=== PATIENT | female | born 1945 | race Caucasian/White ===

== ENCOUNTER 2016-06-23 08:45 | Emergency (ER) | payer OTHER ==
[~2016-06-23] VITALS: Ht 167.6 cm; Wt 95.3 kg
[~2016-06-23 08:45] MED LIST: APAP/CODEINE 301 TAB PO; ATENOLOL25 M1 PO; LISINOPRIL20 MG PO; PROPAFENONE HC PO
[2016-06-23 09:26] LABS: ABSOLUTE BASOPHIL COUNT 0 /CUMM (0.0-0.2); ABSOLUTE EOSINOPHIL COUNT 0.2 /CUMM (0.0-0.7); ABSOLUTE GRANULOCYTE CT 3.1 /CUMM (1.4-6.5); ABSOLUTE LYMPH COUNT 1.6 /CUMM (1.2-3.4); ABSOLUTE MONOCYTE COUNT 0.5 /CUMM (0.10-0.60); BASOPHIL % 0.6 % (0.0-2.0); EOSINOPHIL % 3.3 % (0-5); GRANULOCYTE % 56.7 % (42.2-75.2); HEMATOCRIT 40.4 % (37-47); MEAN CORPUSCULAR HGB 31.7 PG (27.0-31.0); MEAN CORPUSCULAR HGB CONC 34.8 G/DL (33.0-37.0); PLATELET COUNT 206 /CUMM (130-400); RED BLOOD CELL CT 4.44 /CUMM (4.20-5.40); WHITE BLOOD CELL COUNT 5.4 /CUMM (4.8-10.8)
--- NOTE | 2016-06-23 09:50 | ED CARDIAC/CP/PALPITATIONS ---
History of Present Illness General Chief Complaint: Chest Pain Stated Complaint: ?AFIB, PALPS Source: patient, old records Exam Limitations: no limitations Vital Signs & Intake/Output Vital Signs & Intake/Output Vital Signs Date Time Temp Pulse Resp B/P Pulse O2 O2 Flow FiO2 Ox Delivery Rate 06/23 1425 98.0 60 20 120/70 98 Room Air 06/23 1419 97.8 63 18 119/64 06/23 1311 97.8 63 18 119/64 98 06/23 1106 97.0 61 20 124/75 98 Room Air 06/23 0945 98 Room Air 06/23 0851 97.0 94 20 107/71 97 Room Air Allergies Coded Allergies: diltiazem (Intermediate, HIVES 06/23/16) Reconcile Medications ACETAMINOPHEN WITH CODEINE (Acetaminophen-Cod #3 Tablet) 1 TAB TAB 1 TAB PO BID PRN PAIN (Reported) Atenolol 25 MG TAB 1 TAB PO DAILY HEART (Reported) Losartan Potassium 25 MG TABLET 1 TAB PO DAILY BP (Reported) PROPAFENONE HCL (Propafenone HCl ER) 425 MG CER 1 TAB PO BID HEART (Reported) Tramadol HCl 50 MG TABLET 1 TAB PO TID PAIN (Reported) Warfarin Sodium (Coumadin) 2 MG TABLET 1 TAB PO SUN,MON,WED AFIB (Reported) Warfarin Sodium (Coumadin) 4 MG TABLET 1 TAB PO TU,JOSIAH,SAT AFIB (Reported) Triage Note: PT STATES SHE WOKE UP THIS MORNING WITH PALPITATIONS AND SOB. STATES HX OF AFIB AND TAKES COUMADIN FOR SAME BUT ISN'T IN A FIB ALL THE TIME. PT DENIES CP Triage Nurses Notes Reviewed? yes Onset: Abrupt Duration: hour(s): Timing: recent history Quality/Severity: moderate, severe HPI: 70-year-old female comes into emergency room for further evaluation of complaining that she feels like she is in A. fib. Patient complaining of heart palpitations and some associated shortness of breath when she woke up this morning. History of A. fib. Currently on Coumadin. Sees Dr. Mars from cardiology. She denies any chest pain vomiting or diaphoresis. Nothing seems to make the symptoms better or worse. Denies any other associated symptoms. (KALYANI THOMPSON,ISABELLA) Past History Travel History Traveled to [place] past 21 day No Medical History Any Pertinent Medical History? 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 History of MRSA: No History of VRE: No History of CDIFF: No Surgical History Surgical History: CARIO ABLATION Psychosocial History Who do you live with Spouse Services at Home None What is your primary language Faroese Tobacco Use: Never used ETOH Use: occasional use Illicit Drug Use: denies illicit drug use Family History Hx Contributory? No (ISABELLA LIVINGSTON) Review of Systems Review of Systems Constitutional: Reports: no symptoms. EENTM: Reports: no symptoms. Respiratory: Reports: no symptoms. Cardiovascular: Reports: see HPI. GI: Reports: no symptoms. Genitourinary: Reports: no symptoms. Musculoskeletal: Reports: no symptoms. Skin: Reports: no symptoms. Neurological/Psychological: Reports: no symptoms. Hematologic/Endocrine: Reports: no symptoms. Immunologic/Allergic: Reports: no symptoms. All Other Systems: Reviewed and Negative (ISABELLA LIVINGSTON) Physical Exam Physical Exam General Appearance: well developed/nourished, no apparent distress, alert Head: atraumatic, normal appearance Eyes: Bilateral: normal appearance, EOMI. Ears, Nose, Throat: normal ENT inspection, hearing grossly normal Neck: normal inspection Respiratory: normal breath sounds, no respiratory distress Cardiovascular: regular rate/rhythm Back: normal inspection, normal range of motion Extremities: normal inspection Neurologic/Psych: awake, alert, oriented x 3, normal gait, normal mood/affect Skin: intact, normal color Core Measures ACS in differential dx? No Severe Sepsis Present: No Septic Shock Present: No (ISABELLA LIVINGSTON) Progress Differential Diagnosis: AMI, aortic dissection, atrial fibrillation, cholecystitis, costochondritis, hyperkalemia, hypovolemia, hyperthyroid, hyperventilation, musculoskeletal pain, myocarditis, pancreatitis, pericarditis, pulmonary embolism, PUD/GERD, PVCs/PACs, respiratory failure, rib fracture, sepsis, unstable angina, WPW syndrome Plan of Care: Orders Procedure Date/time Status Telemetry/Lead Atg Developer 06/24 911 Active TROPONIN LEVEL 06/23 910 Complete PROTHROMBIN TIME 06/23 910 Complete COMPREHENSIVE METABOLIC PANEL 06/23 910 Complete CBC WITHOUT DIFFERENTIAL 06/23 910 Complete EKG 06/23 845 Active Laboratory Tests 06/23/16 0918: Anion Gap 9, Estimated GFR > 60, BUN/Creatinine Ratio 25.0, Glucose 104 H, Calcium 10.0, Total Bilirubin 0.7, AST 22, ALT 37, Alkaline Phosphatase 81, Troponin I < 0.01, Total Protein 7.0, Albumin 4.3, Globulin 2.7, Albumin/ Globulin Ratio 1.6, PT 26.0 H, INR 2.50 H, CBC w Diff NO MAN DIFF REQ, RBC 4.44, MCV 91.0, MCH 31.7 H, RDW 13.0, MPV 9.0, Gran % 56.7, Lymphocytes % 30.1, Monocytes % 9.3, Eosinophils % 3.3, Basophils % 0.6, Absolute Granulocytes 3.1, Absolute Lymphocytes 1.6, Absolute Monocytes 0.5, Absolute Eosinophils 0.2, Absolute Basophils 0, PUBS MCHC 34.8 Initial ED EKG: rate (116), AFIB Comments: 06/23/2016 10:23:46 AM Patient clinically looks well. In the room the patient appears to be normal sinus rhythm with P waves identified on a monitor and sounds regular on exam. EKG that was initially done before heart to identify active P waves. Spoke with Dr. Mars. EKG faxed up to him to take a look at it. 06/23/2016 5:09:42 PM Patient had spontaneously converted back into a normal sinus rhythm. She is already anticoagulated anyways. Patient was seen by Dr. Mars emergency room. Patient will be sent home with follow-up in office within. She clinically looks well. Nontoxic-appearing. She wants to go home because she feels better and her symptoms have resolved. case discussed with dr mondragon. (ISABELLA LIVINGSTON) Departure Departure Disposition: HOME OR SELF CARE Condition: Stable Clinical Impression Primary Impression: Paroxysmal a-fib Referrals: LYUDMILA HICKEY,AISSATOU (PCP/Family) Additional Instructions: Follow-up with your undercoat sprayer as directed. Return to the emergency room if any concerns worsening symptoms. Please go over all results of today's visit with your primary care doctor. Contact your primary care doctor to let them know you were here in the emergency room. There may be nonspecific findings which may not be related to your visit today here in the emergency room but may require further evaluation and chronic monitoring by your primary care doctor. If you had a laceration today the chance of foreign body always remains. You should follow-up with your primary care doctor for recheck in 3-5 days for a wound check. If you had an x-ray done there is a chance that a fracture could have been missed on initial read and you should follow-up with your primary care doctor for repeat x-rays if symptoms persist. If your blood pressure was elevated here in the emergency room please have rechecked by her primary care doctor within the next 48 hours by your primary care doctor. If you were prescribed a narcotic here in the emergency room or any type of controlled substances you're not allowed to drive while taking this medication or operate any type of heavy machinery. Narcotics can make you feel lightheaded dizziness nausea and can cause constipation. 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 Thank you for choosing [facility] emergency room. Please return to the emergency room immediately if you have any other concerns worsening of symptoms. Departure Forms: Customer Survey General Discharge Information (ISABELLA LIVINGSTON) PA/APPLICATIONS SUPPORT ANALYST Co-Sign Statement Statement: ED Attending supervision documentation- x I saw and evaluated the patient. I have also reviewed all the pertinent lab results and diagnostic results. I agree with the findings and the plan of care as documented in the PA's/APPLICATIONS SUPPORT ANALYST's documentation. [] I have reviewed the ED Record and agree with the PA's/APPLICATIONS SUPPORT ANALYST's documentation. [] Additions or exceptions (if any) to the PAs/APPLICATIONS SUPPORT ANALYST's note and plan are summarized below: [] (SARANYA HICKEY,ROGELIO) Critical Care Note Critical Care Note Critical Care Time: non-applicable (ISABELLA LIVINGSTON)
[2016-06-23] MEDS ORDERED: TRAMADOL HCL50 M1 PO (10:30)
[2016-06-23] MEDS ORDERED: LOSARTAN POTASS25 M1 PO (10:30)
[2016-06-23] MEDS ORDERED: COUMADIN2 M1 PO ×2 (10:31→10:32)
[2016-06-23] MEDS ORDERED: COUMADIN4 M1 PO ×2 (10:31→10:32)
[2016-06-23 14:25] VITALS: BP 120/70
--- NOTE | 2016-06-23 17:18 | Cons- Cardiology ---
General Information and HPI Consulting Request Date of Consult: 06/23/16 Requested By: ER History of Present Illness: Mary Carmen is a 70 year old female who carries a history of hypertension and multiple episodes of atrial fibrillation with a rapid ventricular rate. This morning this patient awakened with rapid, irregular palpitations and a general feeling of ill-being. She denies chest discomfort or shortness of breath. Her last bout of atrial fibrillation was in February in the setting of severe emotional distress and she was converted back to sinus rhythm with Ibutilide. She fortunately spontaneously converted back into a sinus rhythm today. Other than some stress she is now doing well and remains active an is asymptomatic except for occasional, very transient episodes of palpitations that do not feel like prolonged episodes of atrial fibrillation. A couple visits ago this patient reported a sudden loss of vision in the lower lateral quadrant of her left eye. She does not believe that there was any loss of vision in the right eye. At that time, she did not notice any palpitations. The episode lasted about 15 minutes before resolving and her vision is back to normal now. Previously Mary Carmen reported some exertional shortness of breath. On last visit she also noted a pins and needles sensation over her midsternal region with no definite or consistent exertional chest pain, pressure or tightness. This seems to have resolved. On a prior visit Mary Carmen reported a rather non-descript sensation in her chest that subsequently became a clear chest discomfort. This was attributed to both tizanidine and gabapentin by the patient although I did not think so and asked her to restart these medications. I recently performed a cardiac catheterization which did not show any evidence of significant disease. She now has resolution of her symptoms. She does think that the chest tightness may correlate with allergens in the air. She has had some stress related to her daughter. This patient has not liked chemical stress tests due to bad reactions from the adenosine. Last year Mary Carmen presented to [facility] with suddenly occurring rapid palpitations associated with shortness of breath and mild lightheadedness. She had no accompanying chest discomfort. She was found to be in atrial fibrillation with rapid ventricular rate. Although she typically does convert with Ibutilide , on this particular occasion she did not. She was slowed down with the help of Cardizem and, subsequently, did convert on her own back into normal sinus rhythm where it appears she has remained since discharge from the hospital. The patient 's thyroid function tests have been within normal limits and her INR has been stable. While in the hospital the patient underwent an echocardiographic study which showed an overall normal EF of 55%, with mild left ventricular hypertrophy and mild tricuspid regurgitation. The left atrial size was within the normal range. To review Mary Carmen's past history, this patient has had episodes of rapid irregular palpitations suggestive of atrial fibrillation. In general, these episodes have been noted on an average of two times every six months, although overall they have been rare on her current drug therapy, which includes Rythmol. have these episodes, they are accompanied by shortness of breath and lightheadedness, but no chest pain. Dr. Morfni was of the feeling that paroxysms of atrial fibrillation may be accompanied by AV geovanny reentry or even a concealed accessory pathway. It was his preference to use a stepwise approach of performing intermittent cardioversion as needed, as long as this was necessary only once or twice a year. Otherwise, consideration should be given to a Mini-Maze procedure or AV geovanny catheter ablation and pacemaker implantation. In terms of cardioversion, the patient has undergone multiple chemical cardioversions with Ibutilide. She has also tried Sotalol to help maintain normal sinus rhythm. This did not seem to be effective and she is now on Rythmol which, overall, seems to be controlling her for the most part. Allergies/Medications Allergies: Coded Allergies: diltiazem (Intermediate, HIVES 06/23/16) Home Med List: ACETAMINOPHEN WITH CODEINE (Acetaminophen-Cod #3 Tablet) 1 TAB TAB 1 TAB PO BID PRN PAIN (Reported) Atenolol 25 MG TAB 1 TAB PO DAILY HEART (Reported) Losartan Potassium 25 MG TABLET 1 TAB PO DAILY BP (Reported) PROPAFENONE HCL (Propafenone HCl ER) 425 MG CER 1 TAB PO BID HEART (Reported) Tramadol HCl 50 MG TABLET 1 TAB PO TID PAIN (Reported) Warfarin Sodium (Coumadin) 2 MG TABLET 1 TAB PO SUN,MON,WED AFIB (Reported) Warfarin Sodium (Coumadin) 4 MG TABLET 1 TAB PO ,WED,SAT AFIB (Reported) Review of Systems Review of Systems: A twelve point review of systems is unremarkable. 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 Surgical History Surgical History: CARIO ABLATION Psychosocial History Services at Home: None ETOH Use: occasional use Illicit Drug Use: denies illicit drug use Exam & Diagnostic Data Vital Signs and I&O Vital Signs Date Time Temp Pulse Resp B/P Pulse O2 O2 Flow FiO2 Ox Delivery Rate 06/23 1425 98.0 60 20 120/70 98 Room Air 06/23 1419 97.8 63 18 119/64 06/23 1311 97.8 63 18 119/64 98 06/23 1106 97.0 61 20 124/75 98 Room Air 06/23 0945 98 Room Air 06/23 0851 97.0 94 20 107/71 97 Room Air Intake & Output 06/23 1600 06/23 0800 06/23 0000 06/22 1600 06/22 0800 06/22 0000 Intake Total Output Total Balance Patient 210 lb Weight Physical Exam: General: WD/ obese female in NAD; alert and oriented x 3 HEENT: NC/ AT, PERRL, EOMI NEck: no JVD Heart: RRR with 2/6 systolic murmur at the RUSB and LLSB Lungs: clear bilaterally Abdomen: soft, NT, +ve bowel sounds Extremities: no edema Assessment/Plan Assessment/Plan * This patient has had many episodes of atrial fibrillation but on average they are less than once per year. She has tried antiarrhythmics such as Sotolol but is now on Propafenone. As long as her episodes are rare and short-lived we will not pursue more aggressive therapy such as ablation. Her heart rate is well controlled even when in atrial fibrillation and she is adequately anticoagulated. At present she is in sinus rhythm after spontaneously converting. She is stable for discharge from the ER on her usual home medications with follow up in the office in a couple weeks. Consult Acknowledgment - Thank you for your consult request.
== END 2016-06-23 14:26 ==
LOC: ERH 08:45
PROVIDERS: Physician Assistant Medical
DX: I48.0 Paroxysmal atrial fibrillation (principal); R07.9 Chest pain, unspecified; Z79.01 Long term (current) use of anticoagulants
CPT/HCPCS: 93005; 93010; 96374; J1742

== ENCOUNTER 2016-08-28 11:15 | Emergency (ER) | payer OTHER ==
[~2016-08-28] VITALS: Ht 167.6 cm; Wt 95.3 kg
[~2016-08-28 11:15] MED LIST changes: +COUMADIN2 M1 PO; +COUMADIN4 M1 PO; +LOSARTAN POTASS25 M1 PO; +TRAMADOL HCL50 M1 PO
--- NOTE | 2016-08-28 11:57 | ED GENERAL ADULT ---
History of Present Illness General Chief Complaint: Dizziness Stated Complaint: DIZZY/DIAHHREA/NAUSEA Source: patient Exam Limitations: no limitations Vital Signs & Intake/Output Vital Signs & Intake/Output Vital Signs Date Time Temp Pulse Resp B/P B/P Pulse O2 O2 Flow FiO2 Mean Ox Delivery Rate 08/28 1207 62 135/71 08/28 1139 96.6 64 20 132/65 97 Room Air Allergies Coded Allergies: diltiazem (Intermediate, HIVES 06/23/16) Reconcile Medications Atenolol 25 MG TABLET 1 TAB PO DAILY HEART (Reported) Losartan Potassium 25 MG TABLET 1 TAB PO DAILY BP (Reported) Meclizine HCl 25 MG TABLET 1 TAB PO TIDPRN PRN DIZZINESS Ondansetron (Zofran Odt) 4 MG TAB.RAPDIS 1 TAB SL TID PRN NAUSEA Propafenone HCl (Propafenone HCl ER) 425 MG CAP.ER.12H 1 TAB PO BID HEART ( Reported) Tramadol HCl 50 MG TABLET 1 TAB PO TID PRN PAIN (Reported) Warfarin Sodium (Coumadin) 2 MG TABLET 1 TAB PO SuMoWeFr AFIB (Reported) Warfarin Sodium (Coumadin) 4 MG TABLET 1 TAB PO TuThSa AFIB (Reported) Triage Note: Pt presents to ER c/o of dizziness on and off since Wednesday. Pt states she was getting up on the toilet Wed and felt her vision go for a second and then she felt dizzy. Pt states symptoms then improved but yesterday she started to feel dizzy again. Pt states today she feels very dizzy especially with movement and like the room is spinning. Pt c/o of nausea and diarrhea. Pt denies chest pain and SOB. Pt has a hx of afib. EKG done on arrival pt in [facility] Triage Nurses Notes Reviewed? yes Onset: Gradual Duration: day(s): (3) Timing: no prior history Injury Environment: home Severity: moderate Severity Numbers: 7 Modifying Factors: Improves With: immobilization. Worsens With: movement. Associated Symptoms: NAUSEA HPI: Patient is a 70-year-old female history of atrial fibrillation, hypertension on Coumadin presenting to the emergency department with chief complaint of dizziness, feels like the room is spinning at times with associated nausea. Patient denies any vomiting. Symptoms started about 2-3 days ago. Symptoms worse with positional changes. She first noticed it when she try to get off the toilet and she became dizzy and had to hold onto the wall. Denies any syncopal episode but reports that she felt lightheaded like she was, passout. Patient also r notice symptoms when she was leaning forward. Denies any chest pain palpitations or shortness of breath. Denies taking anything at home to help with symptoms. (WILLIAM LUJAN) Past History Travel History Traveled to [place] past 21 day No Medical History Any Pertinent Medical History? see below for history Neurological: migraine EENT: NONE Cardiovascular: AFIB, hypertension Respiratory: pneumonia Gastrointestinal: GERD, hiatal hernia Hepatic: NONE Renal: NONE Musculoskeletal: disk herniation, osteoarthritis Psychiatric: NONE Endocrine: BORDERLINE DIABETIC (DIET Blood Disorders: NONE Cancer(s): NONE COAL HIKER/Reproductive: NONE Other Medical Hx: Paroxysmal atrial fibrillation, hypertension, right knee surgery, appendectomy, sleep apnea on BiPAP, cholecystectomy, and depression. History of MRSA: No History of VRE: No History of CDIFF: No Surgical History Surgical History: CARIO ABLATION Psychosocial History Who do you live with Spouse Services at Home None What is your primary language Bengali Tobacco Use: Never used Family History Hx Contributory? No (WILLIAM LUJAN) Review of Systems Review of Systems Constitutional: Reports: no symptoms. Comments Review of systems: See HPI, All other systems negative. Constitutional, no chills fever or weight loss HEENT: No visual changes no sore throat no congestion Cardiovascular: No chest pain ,palpitation , orthopnea or ankle swelling Skin, no jaundice no rashes Respiratory: No dyspnea cough sputum or hemoptysis GI: no vomiting : No dysuria No hematuria Muscle skeletal: no back pain, no neck pain, Neurologic: No numbness no confusion NO LOPES Psych: No stress anxiety or depression,. Heme/endocrine: No bruising no bleeding no polyuria or polydipsia Immunology: No splenectomy or history of AIDS (WILLIAM LUJAN) Physical Exam Physical Exam General Appearance: well developed/nourished, no apparent distress, alert, awake , comfortable Comments: Well-developed well-nourished person in no acute distress HEENT: Normal EENT exam, extraocular motion intact, horizontal nystagmus present bilaterally Pupils equally round and reactive to light and accommodation. Nose is atraumatic. External auditory canal and Tympanic membranes clear. Pharynx normal. No swelling or edema. Neck: Supple, no lymphadenopathy, normal range of motion without pain or tenderness Back: Nontender, no CVA tenderness. Full range of motion Cardiovascular: Regular rate and rhythms, HOLOSYSTOLIC MURMUR APPRECIATED, normal JVP Respiratory: Chest nontender. No respiratory distress.breath sounds clear to auscultation bilaterally Abdomen: Soft, nontender nondistended, no appreciable organomegaly. Normal bowel sounds. No ascites Extremity: No edema, no calf tenderness to palpation, normal and equal pulses. Muscular strength is 5 out of 5 in all shot raise. Tooling Engineer strength is equal and symmetric bilaterally. Neuro: Alert oriented x3, motor sensory normal, cranial nerves II through XII grossly intact. Cerebellar testing is unremarkable. Patellar reflexes are 2+ bilaterally. Negative Romberg. Skin: No appreciable rash on exposed skin, skin is warm and dry. Psych: Mood and affect is normal, memory and judgment is normal. Core Measures ACS in differential dx? No CVA/TIA Diagnosis: No Severe Sepsis Present: No Septic Shock Present: No (WILLIAM LUJAN) Progress Differential Diagnoses I considered the following diagnoses in my evaluation of the patient: CVA, TIA, vertigo, viral labyrinthitis, dehydration, orthostatic hypotension Plan of Care: Orders Procedure Date/time Status Add-on Test (ER Only) 08/28 1315 Active PROTHROMBIN TIME 08/28 1215 Complete CHOLESTEROL 08/28 1215 Complete MISTAKE 08/28 1149 Active TROPONIN LEVEL 08/28 1149 Complete LIPASE 08/28 1149 Complete COMPREHENSIVE METABOLIC PANEL 08/28 1149 Complete CBC WITHOUT DIFFERENTIAL 08/28 1149 Complete EKG 08/28 1118 Active Laboratory Tests 08/28/16 1215: Anion Gap 12, Estimated GFR > 60, BUN/Creatinine Ratio 25.7 H, Glucose 113 H, Calcium 9.9, Total Bilirubin 1.0, AST 23, ALT 40, Alkaline Phosphatase 73, Troponin I < 0.01, Total Protein 6.9, Albumin 4.5, Globulin 2.4, Albumin/ Globulin Ratio 1.9, Cholesterol 209 H, Lipase 89, PT 24.7 H, INR 2.37 H, CBC w Diff NO MAN DIFF REQ, RBC 4.26, MCV 90.1, MCH 30.7, RDW 13.7, MPV 8.7, Gran % 71.8, Lymphocytes % 17.2 L, Monocytes % 8.9, Eosinophils % 1.6, Basophils % 0.5 , Absolute Granulocytes 4.7, Absolute Lymphocytes 1.1 L, Absolute Monocytes 0.6 , Absolute Eosinophils 0.1, Absolute Basophils 0, PUBS MCHC 34.1 Diagnostic Imaging: Viewed by Me: MRI, Ultrasound. Discussed w/RAD: MRI, Ultrasound. Radiology Impression: PATIENT: ARIELLE STRATTON PRESENT AGE: 70 PATIENT ACCOUNT NO: [id number] : 46 LOCATION: [facility] ORDERING PHYSICIAN: WILLIAM THOMPSON SERVICE DATE: 08/28/16 EXAM TYPE: MRI - MRI-HEAD W/O MANJIT EXAMINATION: MR BRAIN WITHOUT CONTRAST CLINICAL INFORMATION: Dizziness episodes with unsteady gait. COMPARISON: Head CT 04/28/2010 TECHNIQUE: MRI of the brain without contrast was obtained using routine sequences. FINDINGS : There is no hydrocephalus, extra-axial surface collection, or herniation. Mild T2 signal changes within the supratentorial white matter, most likely mild chronic microangiopathy. The major flow voids at the skull base are preserved. There is no acute infarct on diffusion-weighted imaging. There is no intracranial hemorrhage on the gradient recalled echo acquisition. The midline structures are normal. The cerebellar tonsils are normally positioned. The cerebellum and brainstem are normal. The craniocervical junction is normal. Osseous marrow signal intensity is homogenous. The visualized soft tissues are unremarkable. There is mild mucosal thickening within the maxillary sinuses and ethmoid air cells bilaterally. IMPRESSION: - No acute intracranial findings. No acute infarcts. - Mild chronic microangiopathy. DICTATED BY: BIGG GREEN MD DATE/TIME DICTATED:08/28/161342 ARMATURE WINDER REPAIRER:SHANTANU DATE/TIME TRANSCRIBED:08/28/161342 CONFIDENTIAL, DO NOT COPY WITHOUT APPROPRIATE AUTHORIZATION. <Electronically signed in Other Vendor System> SIGNED BY: BIGG GREEN MD 08/28/16 1356, ATIENT: ARIELLE STRATTON PRESENT AGE: 70 PATIENT ACCOUNT NO: [id number] : 46 LOCATION: [facility] ORDERING PHYSICIAN: WILLIAM THOMPSON SERVICE DATE: 08/28/16 EXAM TYPE: US - [id number] DOPPLER EXAMINATION: DUPLEX BILATERAL CAROTID ULTRASOUND CLINICAL INFORMATION: Dizziness x2 days. COMPARISON: 06/03/2015 TECHNIQUE: Duplex bilateral carotid US was performed using real-time ultrasound and Doppler techniques (integrating B-mode 2D vascular images, Doppler spectral analysis and color flow Doppler imaging). These techniques were utilized to interrogate the extracranial carotid and vertebral arteries bilaterally. The degree of stenosis is based off criteria similar to NASCET. FINDINGS: 1. On the right: No plaque is present at the carotid bifurcation and all velocity measurements are normal and do not suggest a stenosis of greater than 50% diameter reduction in the right ICA. The vertebral artery is patent demonstrating antegrade flow. 2. On the left: Plaque is present at the carotid bifurcation but velocity measurements are normal and do not suggest a stenosis of greater than 50% diameter reduction in the left ICA. The vertebral artery is patent demonstrating antegrade flow. The external carotid arteries appear unremarkable. Subclavian artery waveforms are normal. IMPRESSION: There is plaque present in the left internal carotid artery with normal velocities consistent with a minimal 0-49% stenosis. The right side is normal with no plaque seen. DICTATED BY: VERA BLAKE MD DATE/TIME DICTATED:08/28/161338 ARMATURE WINDER REPAIRER:SHANTANU DATE/TIME TRANSCRIBED:08/28/161338 CONFIDENTIAL, DO NOT COPY WITHOUT APPROPRIATE AUTHORIZATION. <Electronically signed in Other Vendor System> SIGNED BY: VERA BLAKE MD 08/28/16 1346 Initial ED EKG: SINUS RHYTHM AT 69 BPM Prior EKG: unchanged Comments: On arrival patient's orthostatics are negative. We'll assess blood work CBC, CMP. CT scan it down, patient will go for MRI. Patient will also have carotid ultrasound performed. Patient does have horizontal nystagmus on exam. This could be vertigo. Neurologically intact on exam. Patient informed of all of her results and imaging study results. IV fluids infusing. Patient reports some meclizine is helping to feel slightly dizzy. We 'll ambulate patient to see how she does. Dr. Esparza in to see the patient at this time. Patient is sitting up, well-appearing, reports that she feels much improved after IV hydration and meclizine. Patient will be discharged home. Ambulatory with steady gait. (SIM THOMPSON,WILLIAM) Departure Departure Time of Disposition: 1607 Disposition: HOME OR SELF CARE Condition: Stable Clinical Impression Primary Impression: Dizziness Referrals: LYUDMILA HICKEY,AISSATOU (PCP/Family) Additional Instructions: Follow-up with ear nose and throat call to make appointment. Take meclizine as prescribed for vertigo. Take Zofran as prescribed for nausea. Increase fluids. Return for worsening symptoms or concerns. Departure Forms: Customer Survey General Discharge Information Prescriptions: Current Visit Scripts Meclizine HCl 1 TAB PO TIDPRN PRN DIZZINESS #30 TAB Ondansetron (Zofran Odt) 1 TAB SL TID PRN NAUSEA #10 TAB (WILLIAM LUJAN) PA/GENERAL SERVICE TECHNICIAN Co-Sign Statement Statement: ED Attending supervision documentation- [x] I saw and evaluated the patient. I have also reviewed all the pertinent lab results and diagnostic results. I agree with the findings and the plan of care as documented in the PA's/GENERAL SERVICE TECHNICIAN's documentation. [] I have reviewed the ED Record and agree with the PA's/GENERAL SERVICE TECHNICIAN's documentation. [] Additions or exceptions (if any) to the PAs/GENERAL SERVICE TECHNICIAN's note and plan are summarized below: [] (ANNIE HICKEY,BIGG Silver) Critical Care Note Critical Care Note Critical Care Time: non-applicable (WILLIAM LUJAN)
[2016-08-28 12:07] VITALS: BP 135/71
[2016-08-28 12:21] LABS: ABSOLUTE BASOPHIL COUNT 0 /CUMM (0.0-0.2); ABSOLUTE EOSINOPHIL COUNT 0.1 /CUMM (0.0-0.7); ABSOLUTE GRANULOCYTE CT 4.7 /CUMM (1.4-6.5); ABSOLUTE LYMPH COUNT 1.1 /CUMM (1.2-3.4); ABSOLUTE MONOCYTE COUNT 0.6 /CUMM (0.10-0.60); BASOPHIL % 0.5 % (0.0-2.0); EOSINOPHIL % 1.6 % (0-5); GRANULOCYTE % 71.8 % (42.2-75.2); HEMATOCRIT 38.4 % (37-47); MEAN CORPUSCULAR HGB 30.7 PG (27.0-31.0); MEAN CORPUSCULAR HGB CONC 34.1 G/DL (33.0-37.0); MEAN CORPUSCULAR VOLUME 90.1 FL (81.0-99.0); MEAN PLATELET VOLUME 8.7 FL (7.4-10.4); PLATELET COUNT 219 /CUMM (130-400); RBC DISTRIBUTION WIDTH 13.7 % (11.5-14.5); RED BLOOD CELL CT 4.26 /CUMM (4.20-5.40); WHITE BLOOD CELL COUNT 6.5 /CUMM (4.8-10.8)
[2016-08-28 13:33] LABS: PT 24.7 SEC (9.4-12.5)
--- NOTE | 2016-08-28 13:46 | ULTRASOUND REPORT ---
EXAMINATION: DUPLEX BILATERAL CAROTID ULTRASOUND CLINICAL INFORMATION: Dizziness x2 days. COMPARISON: 06/03/2015 TECHNIQUE: Duplex bilateral carotid US was performed using real-time ultrasound and Doppler techniques (integrating B-mode 2D vascular images, Doppler spectral analysis and color flow Doppler imaging). These techniques were utilized to interrogate the extracranial carotid and vertebral arteries bilaterally. The degree of stenosis is based off criteria similar to NASCET. FINDINGS: 1. On the right: No plaque is present at the carotid bifurcation and all velocity measurements are normal and do not suggest a stenosis of greater than 50% diameter reduction in the right ICA. The vertebral artery is patent demonstrating antegrade flow. 2. On the left: Plaque is present at the carotid bifurcation but velocity measurements are normal and do not suggest a stenosis of greater than 50% diameter reduction in the left ICA. The vertebral artery is patent demonstrating antegrade flow. The external carotid arteries appear unremarkable. Subclavian artery waveforms are normal. IMPRESSION: There is plaque present in the left internal carotid artery with normal velocities consistent with a minimal 0-49% stenosis. The right side is normal with no plaque seen.
--- NOTE | 2016-08-28 13:56 | MRI REPORT ---
EXAMINATION: MR BRAIN WITHOUT CONTRAST CLINICAL INFORMATION: Dizziness episodes with unsteady gait. COMPARISON: Head CT 04/28/2010 TECHNIQUE: MRI of the brain without contrast was obtained using routine sequences. FINDINGS: There is no hydrocephalus, extra-axial surface collection, or herniation. Mild T2 signal changes within the supratentorial white matter, most likely mild chronic microangiopathy. The major flow voids at the skull base are preserved. There is no acute infarct on diffusion-weighted imaging. There is no intracranial hemorrhage on the gradient recalled echo acquisition. The midline structures are normal. The cerebellar tonsils are normally positioned. The cerebellum and brainstem are normal. The craniocervical junction is normal. Osseous marrow signal intensity is homogenous. The visualized soft tissues are unremarkable. There is mild mucosal thickening within the maxillary sinuses and ethmoid air cells bilaterally. IMPRESSION: - No acute intracranial findings. No acute infarcts. - Mild chronic microangiopathy.
[2016-08-28] MEDS ORDERED: ZOFRAN ODT4 M1 SL (16:10)
[2016-08-28] MEDS ORDERED: MECLIZINE HCL25 MG PO (16:10)
== END 2016-08-28 16:32 ==
LOC: ERH 11:15
PROVIDERS: Physician Assistant
DX: R42 Dizziness and giddiness (principal); R11.0 Nausea; I10 Essential (primary) hypertension; I48.91 Unspecified atrial fibrillation; R73.03 Prediabetes
CPT/HCPCS: 70551; 93005; 93010; 96374; J2405; J7040